=== PATIENT | female | born 1970 | race Two or more races ===

== ENCOUNTER 2020-04-26 13:18 | Emergency (ER) | payer MEDICAID ==
[~2020-04-26] VITALS: Ht 152.4 cm; Wt 59.0 kg
[~2020-04-26 13:18] MED LIST: AUGMENTIN 875-1 EAC1 ORAL; IRON159 MG PO
--- NOTE | 2020-04-26 13:57 | Emergency Room Report ---
History of Present Illness General Chief Complaint: Female Urogenital Problems Source: Patient Present Illness HPI Patient is a 49-year-old female presents for increased vaginal bleeding. Reports having period lasting approximately 25 days. States that she had been having regular periods up until last month when she had a period that lasted approximately 15 days. Prior history of anemia. She states she is not currently taking any medications. Reportedly G3, P3. States she is not being seen by gynecology currently. Denies any fever. Had some episodes of nausea and vomiting. Denies any chest discomfort. Allergies: Coded Allergies: No Known Allergies (Unverified , 08/10/15) COVID-19 Screening Contact w/high risk pt: No Experienced COVID-19 symptoms?: No COVID-19 Testing performed PURSE SEINER: No Patient History Past Medical History: see triage record Now: No Reviewed Nursing Documentation: PMH: Agreed; PSxH: Agreed Nursing Documentation-PMH Past Medical History: No Stated History Hx Cardiac Problems: No - ANEMIA Review of Systems All Other Systems: negative except mentioned in HPI Physical Exam Vital Signs Date Time Temp Pulse Resp B/P (MAP) Pulse Ox O2 Delivery O2 Flow Rate FiO2 04/26/20 13:48 97.9 86 18 120/70 (87) 98 Room Air Sp02 EP Interpretation: reviewed, normal General Appearance: normal inspection, well appearing, no apparent distress, alert, GCS 15 Head: atraumatic ENT: normal ENT inspection, hearing grossly normal, normal voice Neck: normal inspection, full range of motion, supple, no bony tend Respiratory: normal inspection, lungs clear, normal breath sounds, no respiratory distress, no retraction, no wheezing Cardiovascular #1: regular rate, rhythm, no edema Gastrointestinal: normal inspection, normal bowel sounds, non tender, soft, no guarding, no hernia Genitourinary: no CVA tenderness Musculoskeletal: normal inspection, back normal, normal range of motion Neurologic: alert, responsive, speech normal, normal inspection Psychiatric: normal inspection, judgement/insight normal, mood/affect normal Medical Decision Making Diagnostic Impression: Primary Impression: Hepatitis ER Course Patient presents for prolonged menses. Differential diagnosis include was not limited to anemia, coagulopathy, fibroid uterus, dysfunctional uterine bleeding among others. Because of complexity of patient's case laboratory tests and imaging studies were ordered. Patient's history is suggestive of somewhat chronic metrorrhagia. Patient was advised to follow-up with [facility] for endometrial biopsy.Patient's laboratory testing showed adequate hemoglobin. Patient given IV fluids. Liver function tests were notable for some signs of inflammation. Patient appears to be stable for outpatient management. She will be given prescription for nausea medication. She is advised to return if any worsening of condition or any other concerns. Labs Test 04/26/20 14:00 04/26/20 14:10 White Blood Count 5.7 K/UL (4.8-10.8) Red Blood Count 4.50 M/UL (4.20-5.40) Hemoglobin 13.3 G/DL (12.0-16.0) Hematocrit 40.3 % (37.0-47.0) Mean Corpuscular Volume 90 FL (80-99) Mean Corpuscular Hemoglobin 29.5 PG (27.0-31.0) Mean Corpuscular Hemoglobin Concent 33.0 G/DL (32.0-36.0) Red Cell Distribution Width 15.1 % (11.6-14.8) Platelet Count 222 K/UL (150-450) Mean Platelet Volume 7.4 FL (6.5-10.1) Neutrophils (%) (Auto) 52.2 % (45.0-75.0) Lymphocytes (%) (Auto) 39.3 % (20.0-45.0) Monocytes (%) (Auto) 5.9 % (1.0-10.0) Eosinophils (%) (Auto) 1.6 % (0.0-3.0) Basophils (%) (Auto) 1.0 % (0.0-2.0) Urine HCG, Qualitative Negative (NEGATIVE) Sodium Level 140 MMOL/L (136-145) Potassium Level 3.4 MMOL/L (3.5-5.1) Chloride Level 102 MMOL/L (98-107) Carbon Dioxide Level 30 MMOL/L (21-32) Anion Gap 8 mmol/L (5-15) Blood Urea Nitrogen 10 mg/dL (7-18) Creatinine 0.8 MG/DL (0.55-1.30) Estimat Glomerular Filtration Rate > 60 mL/min (>60) Glucose Level 131 MG/DL (74-106) Calcium Level 9.5 MG/DL (8.5-10.1) Total Bilirubin 0.3 MG/DL (0.2-1.0) Aspartate Amino Transf (AST/SGOT) 106 U/L (15-37) Alanine Aminotransferase (ALT/SGPT) 241 U/L (12-78) Alkaline Phosphatase 105 U/L (46-116) Total Protein 8.4 G/DL (6.4-8.2) Albumin 4.4 G/DL (3.4-5.0) Globulin 4.0 g/dL Albumin/Globulin Ratio 1.1 (1.0-2.7) Last Vital Signs Date Time Temp Pulse Resp B/P (MAP) Pulse Ox O2 Delivery O2 Flow Rate FiO2 04/26/20 13:48 97.9 86 18 120/70 (87) 98 Room Air Status: improved Disposition: HOME, SELF-CARE Condition: Stable Referrals: NOT CHOSEN IPA/,REFERRING (PCP) Azael Blas MD Apr 26, 2020 13:57
[2020-04-26 14:22] LABS: EOSINOPHILS % (AUTO) 1.6 % (0.0-3.0); HEMATOCRIT 40.3 % (37.0-47.0); HEMOGLOBIN 13.3 G/DL (12.0-16.0); LYMPHOCYTES % (AUTO) 39.3 % (20.0-45.0); MEAN CORPUSCULAR VOLUME 90 FL (80-99); MONOCYTES % (AUTO) 5.9 % (1.0-10.0); NEUTROPHILS % (AUTO) 52.2 % (45.0-75.0); PLATELET COUNT 222 K/UL (150-450); RED CELL DISTRIBUTION WIDTH 15.1 % (11.6-14.8); WHITE BLOOD COUNT 5.7 K/UL (4.8-10.8)
[2020-04-26 14:23] LABS: ANION GAP 8 mmol/L (5-15); BLOOD UREA NITROGEN 10 mg/dL (7-18); CALCIUM 9.5 MG/DL (8.5-10.1); CARBON DIOXIDE 30 MMOL/L (21-32); CHLORIDE 102 MMOL/L (98-107); CREATININE 0.8 MG/DL (0.55-1.30); POTASSIUM 3.4 MMOL/L (3.5-5.1); SODIUM 140 MMOL/L (136-145)
[2020-04-26 14:28] LABS: ALANINE AMINOTRANSFERASE 241 U/L (12-78); ALBUMIN 4.4 G/DL (3.4-5.0); ALBUMIN/GLOBULIN RATIO 1.1 (1.0-2.7); ALKALINE PHOSPHATASE 105 U/L (46-116); ASPARTATE AMINO TRANSFERASE 106 U/L (15-37); BILIRUBIN,TOTAL 0.3 MG/DL (0.2-1.0)
[2020-04-26 14:40] VITALS: BP 120/70
--- NOTE | 2020-04-26 14:41 | NUR ---
pt arrives to ER with complaints of vaginal bleeding.
[2020-04-26] MEDS ORDERED: ONDANSETRON ODT4 MG BC (15:21)
[2020-04-26] MEDS ORDERED: IBUPROFEN600 M1 ORAL (15:21)
--- NOTE | 2020-04-26 15:53 | Diagnostic Imaging Report ---
EXAM: US Pelvis Transvaginal CLINICAL HISTORY: Vaginal bleeding 25 days TECHNIQUE: Real-time transvaginal pelvic ultrasound with image documentation. Transvaginal imaging was used for better evaluation of the endometrium and adnexa. COMPARISON: No relevant prior studies available. FINDINGS: Uterus/cervix: Incidental note of a 1.2 cm cervical nabothian cyst. Uterus measures 8.8 x 5.4 x 3.7 cm. Endometrial stripe thickness of 8.7 mm. No visible myometrial mass. Right ovary: 2.2 x 2.0 x 1.4 cm hypoechoic cyst in the right ovary. Right ovary measures 3.0 x 2.3 x 1.6 cm. Normal Doppler blood flow. Left ovary: Left ovary measures 2.4 x 1.8 x 1.5 cm. Normal Doppler blood flow. Free fluid: No free fluid. Bladder: Empty bladder which cannot be evaluated with this probe. IMPRESSION: 1. No ultrasound findings to explain the patient's vaginal bleeding. 2. 2.2 x 2.0 x 1.4 cm hypoechoic cyst in the right ovary, likely a physiologic cyst or follicle. 3. Incidental note of a 1.2 cm cervical nabothian cyst.
--- NOTE | 2020-04-26 15:55 | NUR ---
At 1520, pt reported she did not want zofran and reports she does not have nausea at this time. IVF continues to infuse, no SS of distress noted at this time, will continue to monitor.
--- NOTE | 2020-04-26 16:19 | NUR ---
Pt awake and alert, pt reports no c/o pain at this time, respirations even and unlabored, no SS of respiratory distress, skin signs normal, neuro intact, OK to discharge per ED Wan MANCILLA.
[2020-04-26 16:27] VITALS: BP 130/70
== END 2020-04-26 16:29 | disposition home or self-care (01) ==
LOC: EMR 13:48
DX: K75.9 Inflammatory liver disease, unspecified (principal); R11.2 Nausea with vomiting, unspecified
CPT/HCPCS: 36415; 76830; 76856; 80053; 81025; 85025; 85610; 85730; 86850; 86900; 86901; 96361; 96374; Z7502; 99284